=== PATIENT | male | born 1975 ===

== ENCOUNTER 2024-10-01 08:45 | Outpatient (AMB) | payer OTHER, SELFPAY ==
[2024-10-01 09:17] VITALS: BP 134/88; PULSE 77; TEMP 37.1; O2SAT 98
--- NOTE | 2024-10-01 09:17 | MHC.OFFWIV ---
Intake Vital Signs 10/01/24 09:17 Weight 199 lb BP 134/88 Blood Pressure Location Rt brachial Position Sitting Pulse 77 Pulse Source Pulse Oximeter Temp 98.7 F Temp Source Oral Pulse Oximetry (%) 98 Oxygen Delivery Method Room Air Intake Visit Reasons: EP-head congestion, fever, chest mucus Intake Note: Patient here for head congestion,fever and chest congestion that has been present over 1 week. Patient Tobacco Use Status: Former Tobacco user Allergies No Known Allergies Allergy (Verified 10/01/24 09:18) Do you need a note to return to daycare/school/sports/work: No HPI HPI Comments History of Present Illness Details 49 y/o male patient who presents to the walk in clinic with c/o URI symptoms since Sunday. [facility] Medical History (Updated 10/01/24 @ 09:35 by Christine Thacker NP) Acute respiratory disease Social History Patient Tobacco Use Status: Former Tobacco user Review of Systems Const All systems reviewed & are unremarkable except as noted in HPI and below Physical Exam Vital Signs: Last Vital Signs Temp 98.7 F 10/01/24 09:17 Pulse 77 10/01/24 09:17 BP 134/88 10/01/24 09:17 Pulse Ox 98 10/01/24 09:17 Oxygen Delivery Method Room Air 10/01/24 09:17 Const General: cooperative, comfortable and no acute distress Nutritional Appearance: well nourished Orientation/consciousness: patient oriented x3 HEENT Head: Yes normocephalic Ears: external ears normal and TM abnormal bulging bilateral and with fluid behind the TM bilateral General nose exam: Nasal discharge present Face and sinus: Yes sinuses nontender Mouth: moist mucous membranes Throat: Yes postnasal drainage Resp Effort & Inspection: normal respiratory effort and able to speak in complete sentences Auscultation: clear to auscultation bilaterally, no crackles, no rales, no rhonchi and no wheezes Cardio Heart sounds: S1 normal heart sound present and S2 normal heart sound present Neuro General: patient oriented x3, gait normal and moves all extremities Psych Speech and movement: Normal speech and movement present Assessment & Plan Assessment & Plan (1) Acute respiratory disease: Code(s): J06.9 - Acute upper respiratory infection, unspecified Plan: Rest and hydrate well with warm fluids. Ordered SARs Acetaminophen for pain relief. Orders: Orders SARS-CoV2/FLU/RSV Today R09.89 - Other specified symptoms and signs involving the circulatory and respiratory systems Medications: New benzonatate 100 mg PO TID 90 caps 0RF J06.9 - Acute upper respiratory infection, unspecified dextromethorphan polistirex ER (Delsym 12 hour) 10 mL PO Q12H 89 mL 0RF cough J06.9 - Acute upper respiratory infection, unspecified Coding Level of Care Code Est Pt Level 3 (21279) Diagnoses Acute respiratory disease J06.9 Time Spent (min) 15
--- OUTSIDE RECORDS SUMMARY | 2024-10-01 09:29 | XMS_ITS | Continuity of Care Document ---
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 It does not include entries that were removed or entered in error. Problem Status Onset Date Problem Type Date of Resolution Comments Source visit for: administrative purpose Inactive Condition [facility] maxillary pain left side Active Condition [facility] Medications Combined list of outpatient medications from Department of Defense and Veterans Affairs facilities.Medications provided include 1) outpatient medications from the last 15 months, and 2) patient-reported medications. Medication Details Route Status Patient Instructions Prescription Expires Prescription Number Last Dispense Date Ordering Provider Order Date Order Qty Source CYCLOBENZAP RINE HCL (cyclobenza henrique HCl), 10 MG, TABLET, ORAL, UNICHEM PHARMAC, 1000 ea. BOTTLE Active [id number] 4 2023 21 Pharmac y Data Transac tion Service Facilit y FLUCONAZOLE (FLUCONAZOL E), 150 MG, TABLET, ORAL, CITRON PHARMA L, 12 ea. BLIST PACK Active [id number] 4 2023 4 Pharmac y Data Transac tion Service Facilit y GAVILYTE-G (PEG 3350/NA SULF,BICARB ,CL/KCL), 236-22.74G, SOLN RECON, ORAL, GAVIS PHARMACEU, 4000 ml BOTTLE Active [id number] 4 2023 4000 Pharmac y Data Transac tion Service Facilit y HYDROXYZINE HCL (hydroxyzin e HCl), 25 MG, TABLET, ORAL, AVET PHARMACEUT, 500 ea. BOTTLE Cancele d [id number] : 2023 0 Pharmac y Data Transac tion Service Facilit y HYDROXYZINE HCL (hydroxyzin e HCl), 25 MG, TABLET, ORAL, AVET PHARMACEUT, 500 ea. BOTTLE Active [id number] 4 2023 90 Pharmac y Data Transac tion Service Facilit y HYDROXYZINE HCL (hydroxyzin e HCl), 25 MG, TABLET, ORAL, RISING PHARM, 500 ea. BOTTLE Active [id number] 4 2023 90 Pharmac y Data Transac tion Service Facilit y HYDROXYZINE HCL (HYDROXYZIN E HCL), 25 MG, TABLET, ORAL, TEVA [place], 500 ea. BOTTLE Cancele d [id number] : 2023 0 Pharmac y Data Transac tion Service Facilit y METHYLPREDN ISOLONE (methylpred nisolone), 4 MG, TAB DS PK, ORAL, Intellijoule, 21 ea. DOSE-PACK Active [id number] 4 2023 21 Pharmac y Data Transac tion Service Facilit y Immunizations Combined list of available immunizations from the Department of Defense and Veterans Affairs facilities. Immunization Series Date Given Administered By Site Reaction Lot Number CVX Code Drug Travel Consultant Status Comments Source influenza, injectable, quadrivalent- pf 2021 [id number] GlaxoSmithKli ne complet ed influenza , injectabl e, quadrival ent-pf 06/18/22 Given Ambulat ory Pharmac y SARS-CoV-2 (COVID-19) mRNA-Bivalent 2021 [id number] complet ed SARS-CoV- 2 (COVID-19 ) mRNA-Biva lent 05/14/22 Given Ambulat ory Pharmac y COVID Vaccine Moderna 2020 [id number] 207 complet ed COVID Vaccine Moderna 08/07/21 Given Ambulat ory Pharmac y influenza, injectable, quadrivalent, preservative free 2020 KATHY, () Not Given influenza , injectabl e, quadrival ent, preservat juancho free [facility] COVID Vaccine Moderna 2020 [id number] 207 complet ed COVID Vaccine Moderna 11/07/20 Given Ambulat ory Pharmac y COVID Vaccine Moderna 2020 [id number] 207 complet ed COVID Vaccine Moderna 10/09/20 Given Ambulat ory Pharmac y influenza, injectable, quadrivalent, preservative free 2020 KELVIN, () Not Given influenza , injectabl e, quadrival ent, preservat juancho free DoD typhoid Vi capsular polysaccharid e vac 2019 [id number] sanofi pasteur complet ed typhoid Vi capsular polysacch aride vac 01/14/20 Given Ambulat ory Pharmac y anthrax vaccine 2019 [id number] Emergent Biosolutions complet ed anthrax vaccine 01/14/20 Given Ambulat ory Pharmac y measles/mumps /rubella virus vaccine 2019 [id number] Merck & Company Inc complet ed measles/m umps/rube lla virus vaccine 01/14/20 Given Ambulat ory Pharmac y influenza, seasonal, injectable-pf 2018 [id number] 140 sanofi pasteur complet ed influenza , seasonal, injectabl e-pf 07/09/19 Given Ambulat ory Pharmac y influenza, injectable, quadrivalent- pf 2017 [id number] Seqirus complet ed influenza , injectabl e, quadrival ent-pf 07/06/18 Given Ambulat ory Pharmac y Influenza, inj, MDCK, quadrivalent- pf 2016 [id number] 171 Seqirus complet ed Influenza , inj, MDCK, quadrival ent-pf 07/08/17 Given Ambulat ory Pharmac y influenza, seasonal, injectable-pf 2015 [id number] 140 Seqirus complet ed influenza , seasonal, injectabl e-pf 06/17/16 Given Ambulat ory Pharmac y influenza, seasonal, injectable-pf 2014 [id number] 140 CSL Behring complet ed influenza , seasonal, injectabl e-pf 07/11/15 Given Ambulat ory Pharmac y hepatitis B adult vaccine 2013 [id number] Merck & Company Inc complet ed hepatitis B adult vaccine 06/07/14 Given Ambulat ory Pharmac y influenza, seasonal, injectable-pf 2013 [id number] CSL Behring complet ed influenza , seasonal, injectabl e-pf 06/07/14 Given Ambulat ory Pharmac y hepatitis B adult vaccine 2013 [id number] Merck & Company Inc complet ed hepatitis B adult vaccine 01/04/14 Given Ambulat ory Pharmac y hepatitis B adult vaccine 2013 [id number] 43 Merck & Company Inc complet ed hepatitis B adult vaccine 12/07/13 Given Ambulat ory Pharmac y influenza, seasonal, injectable-pf 2012 [id number] 140 sanofi pasteur complet ed influenza , seasonal, injectabl e-pf 06/24/13 Given Ambulat ory Pharmac y Influenza, seasonal, injectable, preservative free 1 2012 [id number] 140 Sanofi Pasteur ([facility]) complet ed Influenza , seasonal, injectabl e, preservat juancho free DoD tetanus, diphtheria, acellular pertu is 2012 [id number] 115 sanofi pasteur complet ed tetanus, diphtheri a, acellular pertussis 03/15/13 Given Ambulat ory Pharmac y tetanus toxoid, reduced diphtheria toxoid, and acellular pertu is vaccine, adsorbed 0 2012 [id number] 115 Sanofi Pasteur ([facility]) complet ed tetanus toxoid, reduced diphtheri a toxoid, and acellular pertussis vaccine, adsorbed DoD tuberculin purified protein derivative 1998 2506-[address] [facility] complet ed tuberculi n purified protein derivativ e 07/10/99 Given Ambulat ory Pharmac y influenza virus vaccine, whole virus [id number] 16 [facility] complet ed influenza virus vaccine, whole virus 07/10/99 Given Ambulat ory Pharmac y influenza virus vaccine, whole virus 0 [id number] 16 [facility] ([facility]) complet ed influenza virus vaccine, whole virus DoD measles/mumps /rubella virus vaccine 1997 [id number] Persaud [facility] complet ed measles/m umps/rube lla virus vaccine 07/27/98 Given Ambulat ory Pharmac y measles, mumps and rubella virus vaccine 0 1997 [id number] 03 Persaud (AB) complet ed measles, mumps and rubella virus vaccine DoD hepatitis A adult vaccine 1997 [id number] 52 [employer] complet ed hepatitis A adult vaccine 07/10/98 Given Ambulat ory Pharmac y tuberculin purified protein derivative [id number] [facility] complet ed tuberculi n purified protein derivativ e 07/10/98 Given Ambulat ory Pharmac y influenza virus vaccine, whole virus [id number] 16 [facility] complet ed influenza virus vaccine, whole virus 07/10/98 Given Ambulat ory Pharmac y influenza virus vaccine, whole virus 0 [id number] 16 [facility] (CON) complet ed influenza virus vaccine, whole virus DoD hepatitis A vaccine, adult dosage 2 1997 [id number] 52 [facility] ([facility]) complet ed hepatitis A vaccine, adult dosage DoD tuberculin purified protein derivative 1997 2455-[address] [facility] complet ed tuberculi n purified protein derivativ e 04/22/98 Given Ambulat ory Pharmac y influenza virus vaccine, whole virus 1996 16 complet ed influenza virus vaccine, whole virus 08/03/97 Given Ambulat ory Pharmac y influenza virus vaccine, whole virus 0 1996 16 () complet ed influenza virus vaccine, whole virus DoD hepatitis A adult vaccine 1996 52 complet ed hepatitis A adult vaccine 07/11/97 Given Ambulat ory Pharmac y hepatitis A vaccine, adult dosage 1 1996 52 () complet ed hepatitis A vaccine, adult dosage DoD tetanus-dipht h toxoids (Td) adult/adol 1993 09 complet ed tetanus-d iphth toxoids (Td) adult/ado l 02/21/94 Given Ambulat ory Pharmac y tetanus and diphtheria toxoids, adsorbed, preservative free, for adult use (2 Lf of tetanus toxoid and 2 Lf of diphtheria toxoid) 0 1993 09 () complet ed tetanus and diphtheri a toxoids, adsorbed, preservat juancho free, for adult use (2 Lf of tetanus toxoid and 2 Lf of diphtheri a toxoid) DoD poliovirus vaccine, live, oral 1993 02 complet ed polioviru s vaccine, live, oral 09/08/93 Given Ambulat ory Pharmac y trivalent poliovirus vaccine, live, oral 0 1993 02 () complet ed trivalent polioviru s vaccine, live, oral DoD Results Combined list of recent chemistry, hematology and other laboratory results from Department of Defense and Veterans Affairs, ranging from 15 months to all on record, depending upon the facility. Order Name Results Value Reference Range Date Interpretation Specimen Comments Source Infectio us Disease HIV-1/O/2 Non-Reac tive 1 (11/10/23 11:28 AM) 11/09 N Interpretiv e Data: INTERPRETAT ION: This method is a screening procedure for the detection of HIV p24 Antigen and Antibodies to HIV-1, including Group O, and/or HIV-2. NON-REACTIV E: HIV-1 antigen and HIV-1 / HIV-2 antibodies were not detected. No laboratory evidence of HIV infection. A negative test result does not exclude the possibility of exposure to or infection with HIV. HIV antibodies and/or p24 antigen may be undetectabl e in some stages of the infection and in some clinical conditions. If acute HIV infection is suspected, consider submitting another specimen to a reference laboratory for HIV-1 RNA. SCREEN REACTIVE - CONFIRMATIO N TO FOLLOW: Possible presence of HIV-1antibo dies, HIV-2 antibodies and/or HIV-1 p24 antigen. Specimen will reflex to the confirmatio n testing that fulfills the Center for Disease Control and Prevention' s HIV diagnostic algorithm. Refer to [facility] Lab Guide for additional information : [email or web address] x Testing performed by [facility] Delilahcella jose alberto Sendouts Repository Sample Received (11/10/23 11:28 AM) 11/09 N [facility] Vital Signs Combined list of inpatient and outpatient Vital Signs from Department of Defense and Veterans Affairs, ranging from 12 months to all on record, depending upon the facility. Vital Sign Value Date Comments Source No data available for this section Ambulatory Pharmacy Encounters Combined list of: 1) Encounters from Department of Veterans Affairs facilities going back up to thelast 18 months. 2) Encounters from the Department of Defense facilities going back up to 280 months. Location Location Details Encounter Type Encounter Number Reason For Visit Attending Provider ADM Date DC Date Status Disposition Source [facility]) OUTPATIENT [id number] Notes Entered by: GEETA HOWELL 12 Sep 2013 1334 ------- ------- ------- ------- -- sinus infecti on KATHRYN ROCHA 09/12 Released w/o Limitations [facility]) [facility]) OUTPATIENT [id number] refill medicat ion SHARI ROMANN 09/19 Released w/o Limitations [employer] [employer]) TELE CONSULT [id number] Notes Entered by: SHARI ROMAN ROB 23 Sep 2013 0815 ------- ------- ------- ------- -- CT of sinuses JUAN ALBERTOSHARI HILL ROB 09/23 [employer]([facility]) [id number] AMDS Outpatient [id number] SOFY ARLYN 11/09 Discharge Disposition: Home or Self Care 8344R-4 [id number] AMDS [id number] AMDS Between Visit [id number] 05/13 Discharge Disposition: Home or Self Care 8344R-4 39 [facility] [id number] AMDS Between Visit [id number] 05/20 Discharge Disposition: Home or Self Care 8344R-4 39 AMDS Procedures Combined list of: 1) Procedures from Department of Veterans Affairs facilities going back up to thelast 18 months, not all [place] non-surgical procedures are included; 2) All procedures from the Department of Defense facilities. Procedure Procedure Type Code Date Perfomer Comments Sourc e No data available for this section Ambulatory P harmacy Social History Combined list of available smoking, tobacco, and other social history from Department of Defense and Veterans Affairs facilities. Social History Type Response Date Comment Sourc e Male 09/14/2022 Ambulatory Pha rmacy Sexual Orientation [facility] Gender identity [facility] This section is an empty soc ial history section. DoD Assessment and Plan Combined list of future care activities from Department of Defense and Veterans Affairs facilities (e.g., assessment and plan notes, appointments, orders, and referrals). Additional future care activities may be listed in the Plan of Care section. Result Assessment and Plan Date Source Assessment and Plan No data available for this section 10/01/2024 Ambulatory Pharmacy Functional Status Combined list of recent functional and cognitive assessments recorded at Department of Defense and Veterans Affairs (VA).VA Functional [place] Measurement (FIM) Scale: 1 = Total Assistance (Subject = 0% +), 2 = Maximal Assistance (Subject = 25% +), 3 = Moderate Assistance (Subject = 50% +), 4 = Minimal Assistance (Subject = 75% +), 5 = Supervision, 6 = Modified [place] (Device), 7 = Complete [place] (Timely, Safely). Assessment Date/Time Source Assessment Type Assessment Skill Assessment Score Assessment Details No data available for this section
--- OUTSIDE RECORDS SUMMARY | 2024-10-01 09:29 | XMS_ITS | Data Portability ---
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 At this juncture now due to his persistent pain and discomfort I have recommended we get a right shoulder MRI to look at his AC joint and assess for any osteolysis. He is comfortable with this plan and will follow up with me by phone when the MRI has been done. [email or web address] Not available 01/30/2018 10:42:13 03/14/2018 03/14/2018 Dr. Bolden feel s that the patient would benefit from right shoulder intraarticular cortisone injection. The patient agreed to this today. The risks and benefits of the procedure were reviewed. PROCEDURE NOTE: Under sterile conditions with the patient's permission, with the use of ultrasound guidance for both needle visualization and cortisone placement, 1 cc of mixture of 1 cc of lidocaine was injected into the AC joint and 1 cc of Celestone mixed with 6 cc of 1% lidocaine was injected into the subacromial space and glenohumeral joint. Images were taken during the procedure for confirmation of needle placement. The patient tolerated the procedure well. Post-injection instructions were given. Dr. Nura Bolden personally examined this patient and agrees with this plan. Dictated by YVONNE Lopez for Dr. Bolden. 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 There seems to be a slight increase in some spurring in the superior aspect of the clavicle, but he is not overly tender in that region when palpated quite firmly. Overall, I think the shoulder is stable. I do not think he needs an injection today. I also think there is no need for arthroscopic intervention at this time. He is going to get through the rest of this year and continue to increase his activity level. If he finds that the pain comes back we likely would need a repeat MRI as the last was on 02/14/2018. He will contact us in the new year as needed [email or web address] Not available 08/04/2022 12:24:09 Plan of Treatment Reminders Order Date Submit Date Provider Last Modified By Organization Details Last Modified Time Details Appointments None recorded. Lab None recorded. Referral None recorded. Procedures None recorded. Surgeries None recorded. Imaging MRI, shoulder, w/o contrast - pasplease call to schedule, thank you.dx: osteolysis distal clavicle 2017 018 [facility] ([facility]), [address] [place], [address], 8 10:10:37 Medication Orders Celestone Soluspan 6 mg/mL suspension for injection 2017 018 [email or web address] [id number], [address], [place], [phone], 0 11:31:57 Patient TargetsNo targets recorded. Patient Instructions Encounter Date Encounter Id Patient Instructions Last Modified By Organization Details Last Modified Time 04/01/2020 [id number] Educational materials are supplied regarding diagnoses & management Not available 04/01/2020 12:16:31 The findings, diagnosis, and options are discussed including potential treatments. The decision was made to plan for continued expectant observation based on symptoms and clinical findings. We reviewed in detail options for surgery perc, arthroscopic and open. I advised that open may be best for him. Risks and benefits were also reviewed in detail All questions are answered. He will conisider plan for surgery later this year. Follow up will be arranged based on his decision for timing.. Patient will call if problems or questions. Not available 04/01/2020 12:18:33 Reason for Referral None Reported. Results Created Date Observation Date Name Description Value Unit Range Abnormal Flag Note LastModifiedBy Organization Detail LastModifiedTime 01/26/20 18 01/24/2018 XRdavid, 2 or more view [facility] Access ion Number : [id number] 1.1 Jody meza Name : Regino SnyderPageUp People l Record Number : [id number] Date of : 1974 Date of Exam : 2017 Referr ing Physic reginald : NURA BECKWITH [facility] [address] [facility], [address] [place] [address] Exam : CR - SHOULD ER COMPLE TE MINIMU M 2 VIEWS CPT 29760 - RIGHT Room Descri ption : Florecita Guero UArm XR Techni que : AP, Y, Ax Final Report HISTOR Y: Right should er pain FINDIN GS: 3 views the right should er were obtain ed. Glenoh umeral joint is congru ent. There is mild distal clavic ular downsl oping. No fractu re is seen. CONCLU SHEEBA: (Right should er) No acute abnorm ality ----- PHYSIC REGINALD : MIKE CHUNG MD (Yuliet vieira on file) [address], [place], [address], 01/25/2018 08:01:25 02/16/20 18 02/14/2018 MRIdavid, w/o contr ast [facility] Access ion Number : [id number] 1.2 Jody meza Name : Regino Snyder Record Number : [id number] Date of : 1974 Date of Exam : 2017 Referr ing Physic reginald : NURA BECKWITH [facility] sity/[employer] [address] [place] [place], [place] [address] Exam : MR - SHOULD ER (C-) CPT 15950 - RIGHT Room Descri ption : [facility] Ver 3.0T Techni que : Ax PD Fsat, Cor T2 FS, Cor PD, Sag T1, Sag T2 FS Final Report Should er MRI Clinic al Histor y: Pain Findin gs: There is a mild degree of degene rative change of the acromi oclavi cular joint. Capsul ar hypert rophy and spurri ng is noted. Mild edema within the distal clavic le. Mild thicke rosio of the coraco acromi al ligame nt. There is a small subacr omial/ subdel toid bursit is. Mild bursal surfac e irregu larity within distal product marketing coordinator ior supras pinatu s and anteri or infras pinatu s tendon fibers . Mild supras pinatu s and infras pinatu s tendin opathy . The teres minor tendon is intact . Mild fatty atroph y of the teres minor muscle belly. The subsca pulari s tendon is intact . The long head of the biceps tendon is intact . Circum ferent ial labral tear. 0.2 cm parala bral cyst adjace nt to the product marketing coordinator ior-in ferior labrum on image 18 series 3. 0.2 cm parala bral cyst adjace nt to the product marketing coordinator ior-starkey perior labrum image 12 series 3. Impres sheeba: Mild bursal surfac e irregu larity within distal supras pinatu s and infras pinatu s tendon fibers . Small subacr omial/ subdel toid bursit is. Mild supras pinatu s and infras pinatu s tendin opathy . Circum ferent ial labral tear. Small parala bral cysts adjace nt to the product marketing coordinator ior-in ferior and product marketing coordinator ior-starkey perior labrum . Mild fatty atroph y of the teres minor muscle belly can be seen with bradly latera l space syndro me ----- PHYSIC REGINALD : LISBET TAN (Signa isha on file) 2017 [address] [facility] ([facility]) [address], [place], [address], 02/15/2018 10:13:12 03/14/20 18 ultra sound ada nce for injec tion (PROC ) No observ ation record ed. Not Available 2017 17:50:57 03/14/20 18 03/14/2018 ultra sound ada nce for injec tion (PROC ) No observ ation record ed. Not Available 2017 17:51:29 Result Notes None recorded. Problems No Known Problems Procedures Surgical History Date Name Laterality Status Provider Name and Address Organization Details Recorded Time 04/18/2022 Other completed Basilia Romano [facility] 08/04/2022 11:24:30 Imaging Results Imaging Date Name Status LastModified by Organiz ation Details LastModified Time 01/24/2018 XR, shoulder, 2 or more view completed [email or web address] [place] [address], [place], [address], 01/25/2018 08:01:25 02/14/2018 MRI, shoulder, w/o contrast completed [email or web address] [facility] ([facility]) [address], [place], [address], 02/15/2018 10:13:12 03/14/2018 ultrasound guidance for injection (PROC) completed Information not available 03/14/2018 17:50:57 03/14/2018 ultrasound guidance for injection (PROC) completed Information not available 03/14/2018 17:51:29 Procedure Notes None recorded. Medical Equipment None Reported. Allergies No known drug allergies Medications Name Sig Start Date Stop Date Status Note LastModified by Organization Details LastModified Time cyclobenzap rine 10 mg tablet TAKE 1 TABLET BY MOUTH THREE TIMES DAILY NEEDED 08/04 completed Not Available Not Available Not Available desonide 0.05 % topical cream 04/01 completed Not Available Not Available Not Available azithromyci n 250 mg tablet 04/01 completed Not Available Not Available Not Available benzonatate 200 mg capsule TAKE 1 CAPSULE BY MOUTH THREE TIMES DAILY FOR 7 DAYS NEEDED FOR COUGH 08/04 completed Not Available Not Available Not Available Celestone Soluspan 6 mg/mL suspension for injection Take 2 mL by injection route. 04/01 completed Not Available Not Available Not Available prednisone 20 mg tablet TAKE 2 TABLETS BY MOUTH EVERY DAY FOR 5 DAYS 08/04 completed Not Available Not Available Not Available sulfamethox azole 800 mg-trimetho prim 160 mg tablet TK 1 T PO BID WITH FOOD 01/24 completed Not Available Not Available Not Available doxycycline monohydrate 100 mg tablet TAKE 1 TABLET BY MOUTH TWICE DAILY FOR 10 DAYS FOR INFECTION 08/04 completed Not Available Not Available Not Available tramadol 50 mg tablet TAKE 1 TABLET BY MOUTH EVERY 8 HOURS NEEDED 08/04 completed Not Available Not Available Not Available amoxicillin 875 mg tablet 01/24 completed Not Available Not Available Not Available desonide 0.05 % topical ointment APPLY AA ON FACE BID FOR UP TO 1 WEEK THEN BREAK FOR 1 WEEK REPEAT PRN 01/24 completed Not Available Not Available Not Available gentamicin 0.3 % eye drops 01/24 completed Not Available Not Available Not Available diclofenac sodium 75 mg tablet,alena yed release TAKE 1 TABLET BY MOUTH TWICE DAILY active Not Available Not Available No t Available hydroxyzine HCl 25 mg tablet TAKE 1 TABLET BY MOUTH THREE TIMES DAILY NEEDED FOR ITCHING active Not Available Not Available No t Available diclofenac sodium 50 mg tablet,alena yed release TK 1 T PO BID 03/14 completed Not Available Not Available Not Available azelastine 137 mcg (0.1 %) nasal spray USE 2 SPRAYS IN EACH NOSTRIL EVERY EVENING DIRECTED 08/04 completed Not Available Not Available Not Available ibuprofen 600 mg tablet 04/01 completed Not Available Not Available Not Available levofloxaci n 500 mg tablet TK 1 T PO D FOR 10 DAYS 01/24 completed Not Available Not Available Not Available ketoconazol e 2 % topical cream APPLY BID AFFECTED FLAKING AREAS ON FACE UNTIL RESOLVED 01/24 completed Not Available Not Available Not Available fluticasone propionate 50 mcg/actuati on nasal spray,suspe nsion SHAKE LIQUID AND USE 1 SPRAY IN EACH NOSTRIL TWICE DAILY FOR ALLERGY SYMPTOMS 08/04 completed Not Available Not Available Not Available loratadine 10 mg tablet 01/24 completed Not Available Not Available Not Available amoxicillin 875 mg-potassiu m clavulanate 125 mg tablet TAKE 1 TABLET BY MOUTH TWICE DAILY WITH FOOD FOR 10 DAYS FOR INFECTION 08/04 completed Not Available Not Available Not Available hydroxyzine pamoate 25 mg capsule TK 1 TO 2 CS PO Q 6 H PRN 04/01 completed Not Available Not Available Not Available Vitals Date Recorded Body height Provider Name an d Address Organization Details Last Updated DateTime 08/04/2022 177.8 cm Basilia Romano [facility] 08/04/2022 11:20:53 Date Recorded Body mass index (BMI) Body weight Provider Name and Address Organization Details Last Updated DateTime 08/04/2022 27.5 kg/m2 33714.74 nathen Romano [facility] 08/04/2022 11:20:56 Date Recorded Body height Provider Name an d Address Organization Details Last Updated DateTime 01/24/2018 177.8 cm Candelaria Mohan [facility] 01/24/2018 15:07:39 Date Recorded Body mass index (BMI) Body weight Provider Name and Address Organization Details Last Updated DateTime 01/24/2018 27.3 kg/m2 71221.55 g Candelaria Mohan [facility] 01/24/2018 15:07:42 Date Recorded Body height Provider Name an d Address Organization Details Last Updated DateTime 03/14/2018 177.8 cm Edinson Kelley [facility] 03/14/2018 14:14:53 Date Recorded Body mass index (BMI) Body weight Provider Name and Address Organization Details Last Updated DateTime 03/14/2018 27.3 kg/m2 84923.55 nathen Kelley [facility] 03/14/2018 14:14:57 Date Recorded Body height Provider Name an d Address Organization Details Last Updated DateTime 04/01/2020 177.8 cm Christine Carrion [facility] 04/01/2020 11:31:28 Date Recorded Body mass index (BMI) Body weight Provider Name and Address Organization Details Last Updated DateTime 04/01/2020 27 kg/m2 08797.37 g Christine Carrion [facility] 04/01/2020 11:31:30 Social History Question Answer Notes LastModified by Organizat ion Details LastModified Time Tobacco Smoking Status Former Smoker Basilia Romano [facility] 08/04/2022 11:21:05 What Is Your Level Of Alcohol Consumption? Occasional Information not available 08/04/2022 Auto Related Injury? No Information not available 08/04/2022 What Is Your Level Of Caffeine Consumption? Occasional Information not available 08/04/2022 Do You Or Have You Ever Used E-cigarettes Or Vape? 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 Yes Shldr, Elbow, Back Information not available 01/24/2018 What Was The Date Of Your Most Recent Tobacco Screening? 03/14/2018 Information not available 08/04/2022 Do You Or Have You Ever Used Smokeless Tobacco? [id number] Information not available 08/04/2022 How Much Tobacco Do You Smoke? No Information not available 08/04/2022 What Types Of Sporting Activities Do You Participate In? Golf Information not available 08/04/2022 How Many Years Have You Smoked Tobacco? 2 Information not available 08/04/2022 Work Related Injury? No Information not available 08/04/2022 Sex: Unknown Functional Status Question Answer Note LastModified by Organization D etails LastModified Time What is your exercise level? Moderate Information not available 01/24/2018 Mental Status None recorded. Family History Relationship Description Onset Age of this Age Resolved Age Notes LastModified by Organization Details LastModified Time Father No current problems or disability [email or web address] Not available 01/24 15:30:44 Mother No current problems or disability hgiles Not available 01/24 15:30:44 Medical History Condition Response Blood Clots / Phlebitis N Heart Problems N HIV or AIDS N Depression or Anxiety N High Blood Pressure N Irregular Heartbeat Y MRSA N Emphysema / Chronic Bronchitis N Any Other Significant Medical Issues N Reaction to General/Local Anesthesia N Weight Gain / Loss N Hepatitis / Jaundice N Kidney / Bladder Infections N Diabetes N Bleeding Disorder N Hearing Loss N Angina, Heart Failure or Attack N Night Sweats N Seizures / Epilepsy N Osteoarthritis / Rheumatoid arthritis / Other N Cancer N Stroke N Chemical Dependency / Alcoholism N Ulcer / Stomach Bleeding / Indigestion N Visual Loss or Glaucoma N Psoriasis / Skin Rash N Thyroid Disorder N Heart Disease N Asthma / Shortness of Breath / Sleep Creel Selector ea (please specify) N Pulmonary Embolism N Immunizations Vaccine Type Date Status Note Provider Nam e and Address Organization Details Recorded Time COVID-19, mRNA, LNP-S, bivalent, PF, 10 mcg/0.2 mL 07/06/2022 completed Basilia Bote baljit, [facility] 08/04/2022 11:23:07 tetanus toxoid, unspecified formulation 05/18/2022 completed Basilia Bote null, [facility] 08/04/2022 11:23:50 influenza, unspecified formulation 07/06/2022 completed Basilia Nabilae baljit, [facility] 08/04/2022 11:24:15 Past Encounters Encounter ID Performer Location Encounter Start Date Encounter Closed Date Diagnosis/Indication Diagnosis SNOMED-CT Code Diagnosis ICD10 Code Diagnosis Note [id number] YVONNE LOPEZ [facility] [address] [place] [id number] 01/24/2018 14:58:29 01/24/2018 16:11:01 Impingement syndrome of shoulder region 575245353 M75.41 [id number] NURA BOLDEN MD [facility] [address] [place] [phone] 03/14/2018 14:10:36 03/14/2018 16:03:26 Impingement syndrome of shoulder region 781404843 M75.41 [id number] KERRY CONNOLLY MD [facility] [address] [place] [id number] 04/01/2020 11:18:10 04/01/2020 14:48:04 Enthesopathy of elbow region 27454653 M77.8 Lateral ep icondylitis of right humerus 9043846990 20610 M77.11 [id number] YVONNE LOPEZ [facility] [address] [place] [id number] 08/04/2022 10:48:51 08/04/2022 12:43:02 Pain of right shoulder joint 7573045156 6300046 M25.511 Health Concerns Section Related Observation LastModified by Organization Detai ls LastModified Time None Recorded Concern Status LastModified by Organization Details LastModified Time None Recorded Advance Directives Directive None Recorded Payers Encounter Date Sequence Insurance Name Policy Number Policy Anderson Covered Member ID Anderson Member ID Guarantor Name 01/24/2018 1 [employer]PS - FOR LIFE (SECONDARY TO MEDICARE) Regino Majorjai [id number] Regino Majorjai 03/14/2018 1 [employer]PS - FOR LIFE (SECONDARY TO MEDICARE) Regino Majorjai [id number] Regino Snyder 04/01/2020 1 WPS - FOR LIFE (SECONDARY TO MEDICARE) Regino Majorjai [id number] Regino Majorjai 08/04/2022 1 EAST - DOS PRIOR TO 2024 - [employer] () Regino Majorjai [id number] Regino Majorjai Notes Date Note Type Note Provider Name and Address Organization Details Recorded Time 01/24/2018 text/html DIAGNOSIS: Right shoulder AC arthrosis. Regino comes in today for evaluation. 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 He has had right shoulder pain for a long period of time which has gotten worse recently. He has been seen at [facility] but they have held off on getting an MRI because they stated they would only get an MRI if he was willing to contemplate surgery. He got a shot about 1 to 1.5 months ago into his AC joint that actually gave him some good improvement for a while but it has now back hurting again. It seems predominantly over his AC joint, a little bit of it posteriorly. He is right-hand dominant and he comes in today for evaluation. He has had no prior surgery on this shoulder. MEDICATIONS: Diclofenac on an intermittent basis. YVONNE LOPEZ [address] [place] [address], [phone], [facility] 01/30/2018 11:00:35 03/14/2018 text/html Regino is here accompanied by his , Alison, today, who is also being treated by Dr. Bolden. Regino is here for MRI review of his right shoulder. Dr. Bolden spoke with him over the phone and he is here for an ultrasound-guided cortisone shot today. He is right-hand dominant. He has been taking diclofenac. He is going away on vacation next week to [place] and is hoping to get this shoulder to be a little less painful. NURA BOLDEN MD [address] [place] [address], [phone], [facility] 03/18/2018 13:55:45 04/01/2020 text/html The patient is s een today for evaluation of right elbow pain. This is consistent with lateral epicondylitis. Reported onset over past year, Prior similar problem 10 years before this recurrence. Treatments have included: activity modification, NSAIDs, splinting, therapy, and multiple cortisone injection(s). Imaging/tests performed: radiographs in past. He has treated with orthopedist in [facility]. 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 No prior history of trauma is noted. Consultation is requested. KERRY CONNOLLY MD [address] [place] [address], [phone], [facility] 04/01/2020 12:18:37 08/04/2022 text/html 47-year-old male who is here today with chief complaint of right shoulder pain. He was last in the office on 03/14/2018 at which time we gave him an injection into his AC joint. He thinks the injection was helpful for a period of time. He has just had continued and intermittent pain along that AC joint and he thought it was time to be reevaluated. It is actually not bothering him much today. He states he did a push-up challenge in July and was able to do 6000 push-ups without significant pain in the joint. He does have pain however when he does use free weights and certain positions. He really is here just to be reevaluated and make sure he is not doing any damage. New x-rays were obtained today. YVONNE LOPEZ [address] [place] [address], [place], [phone], [facility] 08/09/2022 12:13:17
--- OUTSIDE RECORDS SUMMARY | 2024-10-01 09:29 | XMS_ITS | Continuity of Care Document ---
Author Organization [facility] Address [address] [place] [address]- Care Team Providers Care Gear Cutting Machine Set Up Operator Name Role Phone Silvano LALA, [employer] Primary Care Physician [phone] [id number] Date(s): 08/13/24 - 09/12/24 [facility] [address] [place] [address]- Encounter Type: Triage Allergies, Adverse Reactions, Alerts No Known Medication Allergies Medications diclofenac sodium 75 mg oral delayed release tablet 60 each, TAKE 1 TABLET BY MOUTH TWICE DAILY, 0 Refills, 11/10/22 11:28:00 AM EST, Partial fill upon patient request if the prescription is for a schedule II opioid drug. Start Date: 11/10/22 Status: Ordered Repeat number: 1 Fish Oil By Mouth, 0 Refills, Maintenance, 11/02/23 1:07:00 PM EST, Partial fill upon patient request if the prescription is for a schedule II opioid drug. Start Date: 11/02/23 Status: Ordered Repeat number: 1 Golytely - oral powder for reconstitution See Instructions, Per instructions from GI., # 4,000 mL, 0 Refills, Maintenance, 11/02/23 1:56:00 PM EST, [id number], Partial fill upon patient request if the prescription is for a schedule II opioid drug., Per instructions from GI., 179, cm, 11/02/23 13:03:00 EST, Height Start Date: 11/02/23 Status: Ordered Quantity: 4000.0 Unit: mL Repeat number: 1 Indication: Encounter for screening for malignant neoplasm of colon Multi Vitamin+ 0 Refills, Maintenance, 02/27/23 9:12:00 AM EDT, Partial fill upon patient request if the prescription is for a schedule II opioid drug. Start Date: 02/27/23 Status: Ordered Repeat number: 1 Problem List Condition Confirmation Course Effective Dates Status H ealth Status Informant External hemorrhoids Confirmed Active History of vasectomy Confirmed Active Inguinal lymphadenopathy Confirmed Active Low back pain with left-sided sciatica Confirmed Active Health care maintenance Confirmed Active Social History Social History Type Response Smoking Status Never (less than 100 in lifetime) entered on: 05/14/24 Sex Sex Representation Male (finding) Patient Care team information Care Team Personnel Name: Silvano LALA, [facility] [facility] Position: [facility] Physician - Primary Care Member Role: PCP Address: [address] [place] [address] Telecom: Care Team Related Persons Name: ORIANA THRASHER Insurance Providers Guarantor name: KATHLEEN THRASHER Health Plan Information #: 1 Payer: [employer] Member Number: NA Policy Number: NA Group Number: NA
--- OUTSIDE RECORDS SUMMARY | 2024-10-01 09:30 | XMS_ITS | Clinical Summary ---
Author Organization [facility] Address [address] [place] [address] Care Team Providers Care Clean Room Technician Name Role Phone Unavailable Primary Care Provider Unavailabl e Social History Tobacco Use Types Packs/Day Years Used Date Smoking Tobacco: Never Assessed Sex and Gender Information Value Date Recorded Sex Assigned at Not on file Gender Identity Not on file Sexual Orientation Not on file Plan of Treatment Health Maintenance Due Date Last Done Comments Hepatitis B Vaccines (1 of 3 - 3-dose series) 1974 Hepatitis C Screening 1974 COVID-19 Vaccine (#1) 1974 Depression Screening 1986 Preventative Health Evaluation 1992 DTap / Tdap / Td (1 - Tdap) 1993 Colon Cancer Screening (Colonoscopy) 2019 Influenza Vaccine (#1) 2024 Shingrix-Zoster Vaccine (1 of 2) 2024 Pneumococcal Vaccine Aged Out No long er eligible based on patient's age to complete this topic RSV Ped < 20 months Aged Out No longe r eligible based on patient's age to complete this topic
== END 2024-10-01 09:35 | disposition home or self-care (01) ==
PROVIDERS: Visit Provider Nurse Practitioner Family
DX: J06.9 Acute upper respiratory infection, unspecified (principal)

== ENCOUNTER 2024-10-01 08:45 | Outpatient (REF) | payer OTHER, SELFPAY ==
--- OUTSIDE RECORDS SUMMARY | 2024-10-01 11:11 | XMS_ITS | Continuity of Care Document ---
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 It does not include entries that were removed or entered in error. Problem Status Onset Date Problem Type Date of Resolution Comments Source visit for: administrative purpose Inactive Condition [facility] maxillary pain left side Active Condition [facility] Medications Combined list of outpatient medications from [...] ORAL, [facility], 1000 ea. BOTTLE Active [id number] 2023 21 Pharmac y Data Transac tion Service Facilit y FLUCONAZOLE (FLUCONAZOL E), 150 MG, TABLET, ORAL, CITRON PHARMA L, 12 ea. BLIST PACK Active [id number] 2023 4 Pharmac y Data Transac tion Service Facilit y GAVILYTE-G (PEG 3350/NA SULF,BICARB ,CL/KCL), 236-22.74G, SOLN RECON, ORAL, GAVIS PHARMACEU, 4000 ml BOTTLE Active [id number] 2023 4000 Pharmac y Data Transac tion Service Facilit y HYDROXYZINE HCL (hydroxyzin e HCl), 25 MG, TABLET, ORAL, AVET PHARMACEUT, 500 ea. BOTTLE Cancele d [id number] : 2023 0 Pharmac y Data Transac tion Service Facilit y HYDROXYZINE HCL (hydroxyzin e HCl), 25 MG, TABLET, ORAL, AVET PHARMACEUT, 500 ea. BOTTLE Active [id number] 2023 90 Pharmac y Data Transac tion Service Facilit y HYDROXYZINE HCL (hydroxyzin e HCl), 25 MG, TABLET, ORAL, RISING PHARM, 500 ea. BOTTLE Active [id number] 2023 90 Pharmac y Data Transac tion Service Facilit y HYDROXYZINE HCL (HYDROXYZIN E HCL), 25 MG, TABLET, ORAL, TEVA [place], 500 ea. BOTTLE Cancele d [id number] : 2023 0 Pharmac y Data Transac tion Service Facilit y METHYLPREDN ISOLONE (methylpred nisolone), 4 MG, TAB DS PK, ORAL, CrossCurrent, 21 ea. DOSE-PACK Active [id number] 4 2023 21 Pharmac y Data Transac tion Service Facilit y Immunizations Combined list of available immunizations from the Department of Defense and Veterans Affairs facilities. Immunization Series Date Given Administered By Site Reaction Lot Number CVX Code Drug Dowel Inspector Status Comments Source influenza, injectable, quadrivalent- pf 2021 [id number] GlaxoSmithKli ne complet ed influenza , injectabl e, quadrival ent-pf 06/18/22 Given Ambulat ory Pharmac y SARS-CoV-2 (COVID-19) mRNA-Bivalent 2021 [id number] 229 complet ed SARS-CoV- 2 (COVID-19 ) mRNA-Biva lent 05/14/22 Given Ambulat ory Pharmac y COVID Vaccine Moderna 2020 [id number] complet ed COVID Vaccine Moderna 08/07/21 Given Ambulat ory Pharmac y influenza, injectable, quadrivalent, preservative free 2020 KATHY, () Not Given influenza , injectabl e, quadrival ent, preservat juancho free [facility] COVID Vaccine Moderna 2020 [id number] 207 complet ed COVID Vaccine Moderna 11/07/20 Given Ambulat ory Pharmac y COVID Vaccine Moderna 2020 [id number] 207 complet ed COVID Vaccine Moderna 10/09/20 Given Ambulat ory Pharmac y influenza, injectable, quadrivalent, preservative free 2020 KELVIN, () Not Given influenza , injectabl e, quadrival ent, preservat juancho free DoD typhoid Vi capsular polysaccharid e vac 2019 [id number] 101 sanofi pasteur complet ed typhoid Vi capsular polysacch aride vac 01/14/20 Given Ambulat ory Pharmac y anthrax vaccine 2019 [id number] Emergent [employer]olutions complet ed anthrax vaccine 01/14/20 Given Ambulat ory Pharmac y measles/mumps /rubella virus vaccine 2019 [id number] Merck & Company Inc complet ed measles/m umps/rube lla virus vaccine 01/14/20 Given Ambulat ory Pharmac y influenza, seasonal, injectable-pf 2018 [id number] 140 sanofi pasteur complet ed influenza , seasonal, injectabl e-pf 07/09/19 Given Ambulat ory Pharmac y influenza, injectable, quadrivalent- pf 2017 [id number] 150 Seqirus complet ed influenza , injectabl e, quadrival ent-pf 07/06/18 Given Ambulat ory Pharmac y Influenza, inj, MDCK, quadrivalent- pf 2016 [id number] 171 Seqirus complet ed Influenza , inj, MDCK, quadrival ent-pf 07/08/17 Given Ambulat ory Pharmac y influenza, seasonal, injectable-pf 2015 [id number] 140 Seqirus complet ed influenza , seasonal, injectabl e-pf 06/17/16 Given Ambulat ory Pharmac y influenza, seasonal, injectable-pf 2014 [id number] CSL Behring complet ed influenza , seasonal, injectabl e-pf 07/11/15 Given Ambulat ory Pharmac y hepatitis B adult vaccine 2013 [id number] Merck & Company Inc complet ed hepatitis B adult vaccine 06/07/14 Given Ambulat ory Pharmac y influenza, seasonal, injectable-pf 2013 [id number] CSL Behring complet ed influenza , seasonal, injectabl e-pf 06/07/14 Given Ambulat ory Pharmac y hepatitis B adult vaccine 2013 [id number] Merck & Company Inc complet ed hepatitis B adult vaccine 01/04/14 Given Ambulat ory Pharmac y hepatitis B adult vaccine 2013 [id number] Merck & Company Inc complet ed hepatitis B adult vaccine 12/07/13 Given Ambulat ory Pharmac y influenza, seasonal, injectable-pf 2012 [id number] 140 sanofi pasteur complet ed influenza , seasonal, injectabl e-pf 06/24/13 Given Ambulat ory Pharmac y Influenza, seasonal, injectable, preservative free 1 2012 [id number] 140 Sanofi Pasteur ([facility]) complet ed Influenza , seasonal, injectabl e, preservat juancho free DoD tetanus, diphtheria, acellular pertu is 2012 [id number] 115 sanofi pasteur complet ed tetanus, diphtheri a, acellular pertussis 03/15/13 Given Ambulat ory Pharmac y tetanus toxoid, reduced diphtheria toxoid, and acellular pertu is vaccine, adsorbed 0 2012 [id number] 115 Sanofi Pasteur ([facility]) complet ed tetanus toxoid, reduced diphtheri a toxoid, and acellular pertussis vaccine, adsorbed DoD tuberculin purified protein derivative 1998 2506-11 96 [facility] complet ed tuberculi n purified protein derivativ e 07/10/99 Given Ambulat ory Pharmac y influenza virus vaccine, whole virus [id number] [facility] complet ed influenza virus vaccine, whole virus 07/10/99 Given Ambulat ory Pharmac y influenza virus vaccine, whole virus 0 [id number] 16 [facility] ([facility]) complet ed influenza virus vaccine, whole virus DoD measles/mumps /rubella virus vaccine 1997 [id number] 03 [facility] complet ed measles/m umps/rube lla virus vaccine 07/27/98 Given Ambulat ory Pharmac y measles, mumps and rubella virus vaccine 0 1997 28579 03 Persaud (AB) complet ed measles, mumps and rubella virus vaccine DoD hepatitis A adult vaccine 1997 [id number] 52 [facility] or complet ed hepatitis A adult vaccine 07/10/98 Given Ambulat ory Pharmac y tuberculin purified protein derivative 1997 [id number] 96 [facility] complet ed tuberculi n purified protein derivativ e 07/10/98 Given Ambulat ory Pharmac y influenza virus vaccine, whole virus 19971494 [id number] 16 [facility] complet ed influenza virus vaccine, whole virus 07/10/98 Given Ambulat ory Pharmac y influenza virus vaccine, whole virus 0 [id number] 16 [facility] complet ed influenza virus vaccine, whole virus DoD hepatitis A vaccine, adult dosage 2 1997 [id number] 52 [facility] ([facility]) complet ed hepatitis A vaccine, adult dosage DoD tuberculin purified protein derivative 1997 2455-11 96 [facility] complet ed tuberculi n purified protein derivativ [...] Prevention' s HIV diagnostic algorithm. Refer to [facility] Lab Guide for additional information : [email or web address] x Testing [...] ADM Date DC Date Status Disposition Source [facility]) OUTPATIENT [id number] Notes Entered by: GEETA HOWELL 12 Sep 2013 1334 ------- ------- ------- ------- -- sinus infecti on KATHRYN ROCHA 09/12 Released w/o Limitations [facility]) [facility] OUTPATIENT [id number] refill medicat ion SHARI ROMANN 09/19 Released w/o Limitations [employer] [employer]) TELE CONSULT [id number] Notes Entered by: SHARI ROMAN ROB 23 Sep 2013 0815 ------- ------- ------- ------- -- CT of sinuses SHARI ROMAN ROB 09/23 [employer]([facility]) 8344R-[id number] AMDS Outpatient [id number] SOFY ARLYN 11/09 Discharge Disposition: Home or Self Care 8344R-4 39 AMDS 8344R-439 AMDS Between Visit [id number] 05/13 Discharge Disposition: Home or Self Care 8344R-4 39 AMDS 8344R-439 AMDS Between Visit [id number] 05/20 Discharge Disposition: Home or Self Care 8344R-4 39 AMDS Procedures Combined list of: 1) Procedures from 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 DoD Sexual Orientation Ambula tory Pharmacy Gender identity Ambulator y Pharmacy Assessment and Plan Combined list of future [...] of Defense and Veterans Affairs (VA).VA Functional [place] Measurement (FIM) Scale: 1 = Total Assistance (Subject = 0% +), 2 = Maximal Assistance (Subject = 25% +), 3 = Moderate Assistance (Subject = 50% +), 4 = Minimal Assistance (Subject = 75% +), 5 = Supervision, 6 = Modified [place] (Device), 7 = Complete [place] (Timely, Safely). Assessment Date/Time Source Assessment Type Assessment Skill Assessment Score Assessment Details No data available for this section
--- OUTSIDE RECORDS SUMMARY | 2024-10-01 11:11 | XMS_ITS | Clinical Summary ---
Author Organization [facility] Address [address] [place] [address] Care Team Providers Care Medical Technicians Name Role Phone Unavailable Primary Care Provider [...]
[2024-10-01 14:33] LABS: Influenza A PCR NEGATIVE (Negative); Influenza B PCR NEGATIVE (Negative); Resp Syncy Virus RNA Qual PCR NEGATIVE (Negative); SARS COV2 PCR INHOUSE POSITIVE (Negative)
== END 2024-10-01 08:46 | disposition home or self-care (01) ==
LOC: HO.LAB 08:45
PROVIDERS: Nurse Practitioner Family
DX: J06.9 Acute upper respiratory infection, unspecified (principal); R09.89 Other specified symptoms and signs involving the circulatory and respiratory systems
CPT/HCPCS: 0241U; 99212